=== PATIENT | female | born 1970 | race Caucasian/White ===

== ENCOUNTER 2018-06-17 12:31 | Emergency (ER) | payer MEDICAID, MEDICARE ==
[~2018-06-17] VITALS: Ht 162.6 cm; Wt 68.0 kg
[2018-06-17] MEDS ORDERED: SODIUM CHLORIDE 0.9% 1,000 ML IV ONE (13:09)
[2018-06-17] MEDS ORDERED: KETOROLAC 30MG/ML VIAL IV STA (13:09)
[2018-06-17] MEDS ORDERED: ONDANSETRON HCL 4MG/2ML INJ IV STA (13:22)
[2018-06-17] MEDS ORDERED: MORPHINE SULFATE 4 MG/ML CPJ (NOT FOR IM USE) IV STA (13:22)
[2018-06-17] MEDS ORDERED: FUROSEMIDE 40MG/4ML VIAL IV ONE (14:00)
[2018-06-17] MEDS ORDERED: NITROGLYCERIN OINT 1GM/INCH UDPKT TD ONE (14:00)
[2018-06-17] MEDS ORDERED: HYDROCODONE/ACETAMINOPHEN 5/325MG TABLET PO ONE (14:00)
[2018-06-17 14:03] LABS: BASOPHILS % 0.3 % (0.0-2.0); EOSINOPHILS % 1.5 % (0.0-5.0); HEMATOCRIT. 43.7 % (36.0-48.0); HEMOGLOBIN. 15.3 g/dL (12.0-16.0); LYMPHOCYTES % 21.2 % (20.0-50.0); MEAN CORPUSCULAR HEMOGLOBIN 32.2 pg (28.0-32.0); MEAN CORPUSCULAR VOLUME 91.6 fL (81.0-99.0); MEAN PLATELET VOLUME 8.9 fl (7.4-10.4); MONOCYTES % 9.4 % (2.0-8.0); NEUTROPHILS % 67.6 % (40.0-76.0); PLATELET 178 x1000/uL (130-400); RED BLOOD CELL COUNT 4.77 mill/uL (4.2-5.4)
[2018-06-17 14:07] LABS: PROTHROMBIN TIME 10.4 sec (9.1-11.1)
[2018-06-17 14:10] LABS: CHLORIDE 108 mEq/L (98-107)
[2018-06-17 14:22] LABS: HCG SCREEN NEGATIVE
[2018-06-17 17:02] VITALS: BP 120/77
== END 2018-06-17 17:06 | disposition home or self-care (01) ==
LOC: ER 12:42
DX: K64.4 Residual hemorrhoidal skin tags (principal); R55 Syncope and collapse
CPT/HCPCS: 36415; 71045; 80053; 84703; 85025; 85610; 85730; 93005; 96361; 96374; 99285; J2270; J2405; J7030; Z7610; 96375; J1885